=== PATIENT | male | born 1980 | race Caucasian/White ===

== ENCOUNTER 2017-01-20 11:01 | Emergency (ER) | payer MEDICAID, OTHER ==
[~2017-01-20] VITALS: Ht 177.8 cm; Wt 115.0 kg
[2017-01-20] MEDS ORDERED: PHENAZOPYRIDINE HCL 100MG TABLET PO ONE (19:15)
[2017-01-20] MEDS ORDERED: HYDROCODONE/ACETAMINOPHEN 5/325MG TABLET PO PRN (19:15)
[2017-01-20] MEDS ORDERED: PHENAZOPYRIDINE HCL 100MG TABLET PO NR (21:00)
[2017-01-21 00:01] LABS: CLARITY URINE CLOUDY (CLEAR); COLOR URINE YELLOW (YELLOW); GLUCOSE URINE NEGATIVE (NEGATIVE); KETONES URINE NEGATIVE (NEGATIVE); LEUKOCYTE ESTERASE URINE 3+ (NEGATIVE); NITRITE URINE NEGATIVE (NEGATIVE); OCCULT BLOOD URINE 2+ (NEGATIVE); PROTEIN URINE TRACE (NEGATIVE); SPECIFIC GRAVITY URINE 1.024 (1.005-1.030)
[2017-01-21 01:34] VITALS: BP 126/82
== END 2017-01-21 01:44 | disposition home or self-care (01) ==
LOC: ER 13:41
DX: N43.3 Hydrocele, unspecified (principal); N39.0 Urinary tract infection, site not specified; F17.200 Nicotine dependence, unspecified, uncomplicated; F12.10 Cannabis abuse, uncomplicated
CPT/HCPCS: 76870; 81001; 93976; 99285; Z7610; 81003